=== PATIENT | female | born 1955 ===

== ENCOUNTER 2020-08-05 14:30 | Outpatient (CLI) | payer OTHER | END 2020-08-05 14:54 | disposition home or self-care (01) | LOC: MAMO-SONO 14:30 | PROVIDERS: ATTEND Specialist | DX: N60.11 Diffuse cystic mastopathy of right breast (principal); N60.12 Diffuse cystic mastopathy of left breast; Z12.31 Encounter for screening mammogram for malignant neoplasm of breast ==